=== PATIENT | female | born 1930 | race Caucasian/White ===

== ENCOUNTER 2018-03-22 11:00 | Day surgery (SDC) | payer MEDICARE ==
[~2018-03-22] VITALS: Ht 160 cm; Wt 65.8 kg
[~2018-03-22 11:00] MED LIST: COLACE100 MG PO; COZAAR25 MG PO; NORCO 5-325 TA1 EACH PO; RESTORIL7.5 MG PO; ZITHROMAX250 MG PO
--- NOTE | 2018-03-22 13:54 | NUR ---
03/22/18 1354 Lita Alonso 1331-PATIENT ARRIVED TO PACU ON 8L MASK NONAROUSABLE. ORAL AIRWAY AND NASAL AIRWAY IN PLACE. RR EVEN. SB HR 48-50'S. BP 190'S WALE FUNES AT BEDSIDE 1335-PATIENT NONAROUSABLE BP 203 SYSTOLIC WALE FUNES WROTE NEW ORDER FOR BP LABETOLOL IVP. 1340-PATIENT AROUSING SLIGHTLY OPENING EYES AND MOUTH ORAL AIRWAY REMOVED. 1343-NASAL AIRWAY REMOVED. 1344-CHANGED BP CUFF TO RIGHT ARM BP 177/75 1351-PATIENT DROWSY OPENING EYES REPORTING "NEEDS TO URINATE" PLACED ON BEDPAN PASSING FLATUS. WEANED TO RA 02 SAT 96%
--- NOTE | 2018-03-22 20:49 | OR ---
[facility] [address], [place] [address] Signed DATE OF OPERATION: 03/22/2018 SURGEON: Wale Etienne MD PREOPERATIVE DIAGNOSIS: Colon screening. POSTOPERATIVE DIAGNOSES: 1. Flat polyp of cecum. 2. Small non-flat polyp of cecum. 3. Pedunculated polyps x2 at 30 cm and 20 cm. 4. Extensive diverticulosis of colon. PROCEDURES PERFORMED: 1. Total colonoscopy to cecum with endomucosal resection of a flat cecal polyp (mucosal lift technique with spot tattoo dye with mucosal reapproximation with Endoclips and snare polypectomy), prolonged, complicated, difficult. 2. Snare polypectomy x2. 3. Cold morcellation polypectomy x1. ANESTHESIA: Intravenous sedation, propofol infusion, Wale Tinoco CRNA. INDICATIONS: This 88-year-old white woman is a patient of Samy Martinez PA-C, has never had colonoscopy in the past. She is referred for screening on that basis. She remains reasonably healthy overall. She has no symptoms of bleeding, diarrhea, or constipation. She has no personal or family history of colon cancer that she is aware of. She is admitted to undergo initial screening colonoscopy. Understands the risk of bleeding, infection, and perforation. FINDINGS: The prep was adequate with irrigation. There was no solid stool, but copious amounts of turbid fluid and particulate matter, which required a considerable amount of time in irrigation. It was ultimately cleared, however. There is a subtle, but real flat polyp on the cecum which was excised with endomucosal resection technique. Polyp was probably 2 cm in size in aggregate. There was another small polyp of the cecum. There was a pedunculated polyp at 30 cm and another at 20 cm, both excised with snare technique and extensive diverticular changes of sigmoid and left colon. Electronically Signed By: WALE ETIENNE MD 03/22/18 2049 PATIENT NAME: FITO LOYA OPERATIVE REPORT DATE OF : 34 REPORT #: [id number] PHYSICIAN: WALE ETIENNE MD PCP: SAMY MARTINEZ REPORT IS CONFIDENTIAL AND NOT TO BE RELEASED WITHOUT AUTHORIZATION [facility] [address], [place] [address] Signed DESCRIPTION OF PROCEDURE: The patient was brought to the endoscopy suite and placed in lateral decubitus position. Given intravenous sedation with propofol infusional technique by the brush machine setter. Full cardiopulmonary monitoring was maintained. Digital rectal examination was normal. The Olympus video colonoscope was passed into the rectum and manipulated into the sigmoid. There was copious amount of turbid fluid. There was no solid stool. There was a challenging sigmoid due to extensive diverticular changes. The considerable amount of time was required for irrigation and manipulation of the scope through and beyond the sigmoid making the procedure in aggregate prolonged, complicated, and difficult. Once past the sigmoid, the scope was reasonably readily passed to the more proximal colon, though copious amounts of prep fluid and material required brushings, irrigation in a fair amount of time for successful passage of the scope. Ultimately, the cecum was intubated, irrigation undertaken there. A subtle but real polypoid, flat-type sessile lesion of the cecum was noted. Excision was deemed most appropriate with an endomucosal resectional technique with mucosal lift. On that basis, a sclerotherapy needle was used to inject spot tattoo dye in the central portion of the polyp lifting it away from the underlying submucosa. Using a hot snare polypectomy technique, the bulk of the polyp was resected. Additional resection was undertaken with cold snare technique. The fragments of the polyp were gathered and passed for pathology. There was some oozing in the area as would be expected given her advanced age, thinness of the colon, and so forth. Additional cautery was deemed inadvisable and on that basis, Endoclips were used for hemostasis and ultimately also for mucosal reapproximation. There was another small polyp of the cecum, which was excised with cold morcellation technique. This was much smaller. The scope was carefully withdrawn and examination undertaken allowing for good visualization of mucosa throughout. Approximately at 30 cm from the anal verge was a pedunculated polyp about a centimeter in size. This was excised with hot snare polypectomy technique. Another similar such polyp was noted at 20 cm, similarly excised. This was a cold snare technique however. Multiple diverticula are noted in the sigmoid. The scope was further withdrawn and no other findings of concern. CONCLUDING DIAGNOSES: 1. Polyps x4. 2. Extensive diverticulosis. THE PROCEDURE WAS PROLONGED COMPLICATED AND DIFFICULT LASTING FOR 1 HOUR AND 17 MINUTES. PLAN: Recommend repeat colonoscopy in about three years depending on pathologic findings. If she has problems sooner, she will let us know. We will see her back in 4-6 weeks and assess her situation and review her pathology report. Electronically Signed By: WALE ETIENNE MD 03/22/18 7458 PATIENT NAME: FITO LOYA OPERATIVE REPORT DATE OF : 34 REPORT #: [id number] PHYSICIAN: WALE ETIENNE MD PCP: SAMY MARTINEZ REPORT IS CONFIDENTIAL AND NOT TO BE RELEASED WITHOUT AUTHORIZATION [place] [id number] Signed MD JAMES Mccartney/MODL /[id number] cc: CHAVA Albrecht Copies: SAMY MARTINEZ ~ Electronically Signed By: WALE ETIENNE MD 03/22/18 2049 PATIENT NAME: FITO LOYA OPERATIVE REPORT DATE OF : 34 REPORT #: [id number] PHYSICIAN: WALE ETIENNE MD PCP: SAMY MARTINEZ REPORT IS CONFIDENTIAL AND NOT TO BE RELEASED WITHOUT AUTHORIZATION
== END 2018-03-22 15:12 | disposition home or self-care (01) ==
LOC: OPS 11:00 → DS 11:00 → OPS 12:00
PROVIDERS: Surgery
PROC: 0DBE8ZZ Excision of Large Intestine, Via Natural or Artificial Opening Endoscopic (ICD-10-PCS; 2018-03-22)
PROC: 3E0H8GC Introduction of Other Therapeutic Substance into Lower GI, Via Natural or Artificial Opening Endoscopic (ICD-10-PCS; 2018-03-22)
PROC: 0DBH8ZZ Excision of Cecum, Via Natural or Artificial Opening Endoscopic (ICD-10-PCS; principal; 2018-03-22 12:00)
DX: Z12.11 Encounter for screening for malignant neoplasm of colon (principal); D12.0 Benign neoplasm of cecum; D12.6 Benign neoplasm of colon, unspecified; K57.30 Diverticulosis of large intestine without perforation or abscess without bleeding; K21.9 Gastro-esophageal reflux disease without esophagitis; I10 Essential (primary) hypertension; R32 Unspecified urinary incontinence; G25.81 Restless legs syndrome; Z87.19 Personal history of other diseases of the digestive system; Z79.899 Other long term (current) drug therapy
CPT/HCPCS: 88305; J2704; J7120

== ENCOUNTER 2020-11-04 16:09 | Emergency (ER) | payer MEDICARE ==
[~2020-11-04] VITALS: Ht 160 cm; Wt 65.8 kg
[2020-11-07] MEDS ORDERED: LEVOFLOXACIN500 MG PO (23:09)
== END 2020-11-04 19:53 | disposition home or self-care (01) ==
LOC: ED 16:09
DX: S01.01XA Laceration without foreign body of scalp, initial encounter (principal); W01.0XXA Fall on same level from slipping, tripping and stumbling without subsequent striking against object, initial encounter; I10 Essential (primary) hypertension; Z79.899 Other long term (current) drug therapy
CPT/HCPCS: 70450; 99283-25

== ENCOUNTER 2021-04-22 19:30 | Inpatient (IN) | payer MEDICARE ==
[~2021-04-22] VITALS: Ht 160 cm; Wt 60.0 kg
[~2021-04-22 19:30] MED LIST changes: +LEVOFLOXACIN500 MG PO
[2021-04-22] MEDS ORDERED: LOSARTAN POTASS50 MG PO (22:19)
--- NOTE | 2021-04-22 23:00 | NUR ---
AT APPROX THIS TIME, REPORT RECEIVED FROM ED RN, QUESTIONS ANSWERED. AWAITING pt's ARRIVAL TO FLOOR.
[2021-04-22] MEDS ORDERED: AZITHROMYCIN250 MG PO (23:37)
--- NOTE | 2021-04-22 23:40 | NUR ---
pt ARRIVED TO FLOOR FROM ED STRETCHER, SON ERICK ALSO IN ROOM. pt ORIENTED TO SLEF AND PLACE AT THIS TIME, pt UP 2PA STAND PIVOT TO BSC, ALSO INCONTINENT OF URINE. ANDRES CRE DONE AND FRESH ATTENDS IN PLACE. VSS, pt ON CPOX D.T COVID STATUS, ON RA. SPO2 WNL, RR EVEN AND UNLABORED. IV FLUIDS HUNG AND INFUSING DIRECTED, IV SITE WNL. BED ALARM ON FOR SAFETY. NO FURTHER NEEDS, pt ORIENTED TO ROOM. CALL LIGHT IN REACH.
--- NOTE | 2021-04-23 01:26 | NUR ---
pt RESTING IN BED WITH EYES CLOSED, RR EVEN AND UNLABORED. SPO2 94%, pt ON RA. CALL LIGHT IN REACH AND BED ALARM ON.
--- NOTE | 2021-04-23 02:48 | NUR ---
pt AWAKE AND RESTING IN BED, DENIES PAIN AND NAUSEA. ASKING FOR SOCKS TO BE PUT IN PLACE, SOCKS ALREADY IN PLACE. ROOM TEMP INCREASED AND THIS RN ASSISTED pt WITH BLANKETS. BED ALARM REMAINS ON. RR EVEN AND UNLABORED, SPO2 100% ON RA. CPOX IN PLACE. INTERMITTENT COUGH NOTED. NO FURTHER NEEDS, CALL LIGHT IN REACH AND pt IN SIGHT OF RN STATION.
--- NOTE | 2021-04-23 07:38 | NUR ---
MESSAGE SENT TO DR VILLEDA REGARDING pt's TRENDING BLOOD PRESSURES.
--- NOTE | 2021-04-23 07:42 | NUR ---
BEDSIDE REPORT, PT HAS BEEN PLEASANTLY CONFUSED, COOPERATIVE WITH CARE. NO NEW ISSUES, ON ROOM AIR. B/P HAVE BEEN ELEVATED SINCE ADMISSION.
--- NOTE | 2021-04-23 09:00 | NUR ---
PT SITTING UP IN BED EATING BREAKFAST TRAY, SET UP BY TOOL GRINDER. NO DISTRESS NOTED. PT CONFUSED.
--- NOTE | 2021-04-23 10:44 | NUR ---
PT VERBALIZED SHE NEEDED TO USE THE BATHROOM, PT ASSISTED TWO PERSON UP TO BEDSIDE COMMODE, SHE HAD INCONT OF URINE IN BRIEFS AND THEN DID HAVE SMALL AMOUNT OF CLEAR YELLOW URINE. SHE THEN TRANSFERED WITH TWO PERSON AND FWW TO RECLINER. PT TOLERATED ACTIVITY WELL WITH CONTINUED ENCOURAGEMENT AND PROMPTING.
[2021-04-23] MEDS ORDERED: MELATONIN3 MG PO (11:36)
--- NOTE | 2021-04-23 11:37 | NUR ---
MED REC COMPLETE
--- NOTE | 2021-04-23 12:11 | NUR ---
PT SITTING UP IN RECLINER. SHE IS DROWSY, SHE IS WAITING LUCH THEN WILL GO BACK TO BED TO REST
--- NOTE | 2021-04-23 13:48 | NUR ---
PT OFF THE UNIT FOR CT SCAN.
--- NOTE | 2021-04-23 14:10 | NUR ---
PT BACK TO HER ROOM AND SETTLED BACK TO BED AT THIS TIME.
--- NOTE | 2021-04-23 16:44 | NUR ---
PT RESTING IN BED, EYES CLOSED RR REGULAR 16 BPM. NO DISTRESS NOTED.
--- NOTE | 2021-04-23 17:45 | NUR ---
PT HAS BEEN UP TO COMMODE, MULTIPLE TIMES TODAY, SHE REMAINS A 2P WITH FWW. SHE HAS AMBULATED TO BATHROOM WITH PHYSICAL THERAPY AND OCCUPATIONAL THERAPY. SHE HAS NOT REPORTED ANY PAIN, NO NAUSEA. SHE IS CONSUMING 50% OF MEALS, VOIDING QUANTITY SUFFICIENT INCONT. WITH SMALL VOID WHEN UP TO COMMODE OR BATHROOM. SHE HAS CONTINUE TO BE CONFUSED ALTHOUGH PLEASANT AND COOPERATIVE WITH CARE. SHE HAS HAD FAMILY INTO REPORT HER BASELINE, AT HOME SHE AMBULATES INDEPENDENTLY, ALSO SHE DRIVES HER OWN CAR, AND FIXES LARGE FAMILY MEALS INDEPENDENTLY PER HER GRANDAUGHTER. CT SCANNED TODAY SHOWED NO ACUTE PATHOLOGIES
--- NOTE | 2021-04-23 17:54 | NUR ---
CALLED TO UPDATE ON PT V/S TEMP 100.2F AND B/P 184/79 WITH PULSE OF [address] SAID HE WOULD PLACE ORDER. GIVE TYLENOL FOR TEMP
--- NOTE | 2021-04-23 18:00 | NUR ---
KAVITHA RN IN PT ROOM TO ASSIST OCCUPATIONAL THERAPY, PT FELT NAUSEA WITH SPICY DINNER, CARL ADMNISTERED PRN IV, NAUSEA BETTER, PT PROVIDED AN ENSURE AND PUDDING AND APPLESAUCE. ASPIRATION RISK, PT NOTED TO REQUIRE ASSISTANCE WITH EATING.
--- NOTE | 2021-04-23 18:02 | NUR ---
In room with OT. Pt ambulates with FWW and 1-2PA to BR to void. Requires many verbal cues. Back to bed, I/Os charted, Vitals taken: oral temp 100.2, BP high at 187 systolic. Primary RN notified. Pt dinner in room, begins belching and reaching for tissues, emesis bag given. When asked if patient feels nauseated she responds yes. Current dinner of enchiladas removed, applesauce and ensure provided. PRN tylenol and zofran administered. Noted tremors in hands, requires assistance with feeding. This RN remains at bedside at this time
--- NOTE | 2021-04-23 18:10 | NUR ---
PT REPORTS SHE HAS NO CHEST PAIN. SHE IS ALERT AND VERBAL, SHE REMAINS CONFUSED.
--- NOTE | 2021-04-23 19:26 | EKG ---
[facility] [address] [place], [place] [address] Signed Normal sinus rhythm Left axis deviation Minimal voltage criteria for LVH, may be normal variant ( Lamar product ) Possible Anterolateral infarct , age undetermined Abnormal ECG No previous ECGs available Confirmed by JOHNNY VILLEDA DO ([id number]) on 04/23/2021 7:26:08 PM Electronically Signed By: JOHNNY VILLEDA DO 04/23/21 192 PATIENT NAME: FITO LOYA Electrocardiogram DATE OF : 34 PHYSICIAN: JOHNNY VILLEDA DO REPORT #: [id number] REPORT IS CONFIDENTIAL AND NOT TO BE RELEASED WITHOUT AUTHORIZATION
--- NOTE | 2021-04-23 19:29 | NUR ---
SHIFT REPORT RECEIVED FROM AMY MACEDO. PT SON IN ROOM. CPOX 95% ON RA. NO NEEDS AT THIS TIME. CALL LIGHT IN REACH.
--- NOTE | 2021-04-23 20:00 | NUR ---
pt called, states pulseoximiter on finger is bugger her, in to relocate sensor to pt's toe, pt is thankful, vs taken, pt is not incont at this time, nor needing to get up for a void, rn is aware, pt's son in , bed alarm and call light in place
--- NOTE | 2021-04-23 20:15 | NUR ---
ASSESSMENT, VS AND I&O COMPLETED. GCS 14 PT HAS SOME INAPPROPRIATE WORDS. LUNGS CLEAR IN UPPER LOBES AND DIM IN LOWER LOBES. SPO2 96% ON RA. HEART TONES REGULAR. ABD SOFT, NONTENDER, BOWEL TONES ACTIVE. CMS INTACT. IV WNL, IV FLUIDS INFUSING PER ORDER. NO OTHER NEEDS AT THIS TIME. SON IN ROOM. CALL LIGHT IN REACH.
--- NOTE | 2021-04-23 22:39 | NUR ---
IV PUMP ALARING, NEW BAG OF FLUIDS PROVIDED. BRIEFS CHANGED, PT DECLINES TO GET UP TO BSC. PT OFFERED WATER. NO OTHER NEEDS. CALL LIGHT IN REACH.
--- NOTE | 2021-04-23 23:49 | NUR ---
PT RESTING IN BED. CPOX 95% ON RA CURRENTLY.PT HAS EPISODES OF DESATURATION IN TO THE LOW 80s. PT NOTED TO HAVE EPISODES OF SNORING AND SHALLOW BREATHING. PT REPOSITIONED AND SPO2 WILL GO BACK TO HIGH 90s ON RA. NO OTHER NEEDS. CALL LIGHT IN REACH.
--- NOTE | 2021-04-24 02:13 | NUR ---
PT AWAKE IN ROOM. KEIRA RN IN ROOM WITH PT, UP TO BSC AND BACK TO BED, 1P FWW. ASSESSMENT COMPLETED. GCS 14 FOR INAPPROPRIATE WORDS AT TIMES. ORIENTED TO PERSON AND PLACE. SPO2 94% ON RA. LUNGS CLEAR IN UPPER LOBES, DIM IN LOWER LOBES. PT REPORTS CONGESTION AND RUNNY NOSE, OCCASSIONAL DRY COUGH. ABD SOFT, NONTENDER, BOWEL TONES ACTIVE. PT DENIES PAIN AT THIS TIME. IV WNL, CDI, IV FLUIDS INFUSING PER ORDER. WATER PROVIDED. I.S. EDUCATION PROVIDED. CALL LIGHT AND SAFETY EDUCATION PROVIDED. NO OTHER NEEDS. CALL LIGHT IN REACH.
--- NOTE | 2021-04-24 04:35 | NUR ---
BED ALARM SOUNDING, PT ASSISTED TO BSC. BRIEFS CHANGED. VS AND I&O COMPLETED. WATER PROVIDED. NO OTHER NEEDS AT THIS TIME. BED ALARM ON. CALL LIGHT IN REACH.
--- NOTE | 2021-04-24 06:20 | NUR ---
LAB IN ROOM. PT ASKS TO USE BSC. 1PA FWW TO BSC. BRIEFS CHANGED. PT ASSISTED BACK TO BED. NO OTHER NEEDS. BED ALARM ON. CALL LIGHT IN REACH.
--- NOTE | 2021-04-24 07:05 | NUR ---
this rn received report from kassie wooten. pt appears to be resting at this time with respirations noted and cpox in place
--- NOTE | 2021-04-24 08:55 | NUR ---
THIS RN IN PTS ROOM TO GIVE MORING MEDS. YAIR SHEIKH IN PTS ROOM GETTING PT UP TO BEDSIDE COMMODE. PT REQUESTING THE CHAIR ON THE OTHER SIDE OF ROOM. PT REQUIRED SOME STEADYING WHEN STANDING UP BUT IS STEADY ON FEET WHEN WALKING TO CHAIR. PT REPORTS PAIN IN SHOULDER THAT GOT WORSE WHEN DOING BP. PT STATES THAT THE MACHINE SQUEEZES TOO HARD. THIS RN PROVIDED PT WITH TYELENOL. THIS RN GAVE PT PRN HYDRALIZE DUE TO PTS BP >185.
--- NOTE | 2021-04-24 11:15 | NUR ---
this rn in pts room to give pt scheduled meds. md in room at this time as well. pt particular about where all belongings are. this rn reassured pt that belongings will all be within reach before this rn leaves room. pt back in bed with call light and everything else within reach. bed alram on.
--- NOTE | 2021-04-24 15:15 | NUR ---
THIS RN IN PTS ROOM TO CHECK ON PT. PT SITTING UP IN BED AND STATES THAT SHE IS DOING WELL. STATES THAT HER RIGHT ARM IS GETTING BETTER AND WOULD LIKE TO TAKE A BREAK FROM HAVE BP'S DONE ON THAT SIDE. PT STATES ALL SHE NEEDS HELP WITH IS FINDING THE CHANNEL WITH THE [employer]. THIS WAS ACCOMPLISHED. CALL LIGHT WITHIN REACH
--- NOTE | 2021-04-24 19:45 | NUR ---
PT BACK FROM THE TOILET, SHAREE FWW, SITTING AT THE EDGE OF THE CHATTING WITH SON IN ROOM
--- NOTE | 2021-04-24 20:05 | NUR ---
SHIFT REPORT RECEIVED FROM BERNICE MACEDO. PT RESTING IN BED. SON IN ROOM. CALL LIGHT IN REACH.
--- NOTE | 2021-04-24 20:30 | NUR ---
ASSESSMENT COMPLETED. SON IN ROOM. SCHEDULED MEDS PROVIDED. PT DENIES PAIN OR CONGESTION AT THIS TIME. GCS 15 BUT FORGETFUL. A&O TO PERSON AND PLACE. LUNGS CLEAR, HEART TONES REGULAR. ABD SOFT, NONTENDER, BOWEL TONES ACTIVE. CMS INTACT. IV WNL, CDI, FLUSHED WELL. NO OTHER NEEDS AT THIS TIME. CALL LIGHT IN REACH.
--- NOTE | 2021-04-24 22:45 | NUR ---
BED ALARM SET OFF, PT GETTING OOB, NEEDS TO USE THE BSC, ASSISTED OVER, NEW ATTENDS IN PLACE, PT BACK TO BED, PT IS CHATTY AND ASKS QUESTIONS ABT DISCHARGE TOMMOROW, NO FURTHER NEEDS AT THIS TIME
--- NOTE | 2021-04-25 | NUR ---
PT RESTING IN BED, EYES CLOSED. RR EVEN, UNLABORED. BED ALRM ON, CALL LIGHT IN REACH.
--- NOTE | 2021-04-25 02:00 | NUR ---
BED ALARM SOUNDING, PT ASSISTED TO BR. SBA FWW. BACK TO BED. NO OTHER NEEDS. CALL LIGHT IN REACH.
--- NOTE | 2021-04-25 04:00 | NUR ---
PT RESTING IN BED, EYES CLOSED. RR EVEN, UNLABORED. BED ALARM ON. CALL LIGHT IN REACH.
--- NOTE | 2021-04-25 06:00 | NUR ---
ASSESSMENT, VS ANS I&O COMPLETED. PT GCS 15, A&O TO PERSON,PLACE AND TIME. LUNGS CLEAR. HEART TONES REGULAR. ABD SOFT, NONTENDER, BOWEL TONES ACTIVE. IV WNL. NO OTHER NEEDS AT THIS TIME. CALL LIGHT IN REACH.
--- NOTE | 2021-04-25 07:10 | NUR ---
THIS RN RECEIVED REPORT FROM CHARLES MACEDO. PT APPEARS TO BE RESTING AT THIS TIME
--- NOTE | 2021-04-25 07:50 | NUR ---
THIS RN IN PTS ROOM TO ASSIST PT TO RESTROOM. PT BACK TO CHAIR AND IS READY FOR BREAKFAST
--- NOTE | 2021-04-25 08:45 | NUR ---
THIS RN IN PTS ROOM TO GIVE MORNING MEDS. PT STATES THAT HER SHOULDER IS STILL SORE FROM WHAT SHE THINKS IS THE BP CUFF
== END 2021-04-25 10:35 | disposition home or self-care (01) | DRG 177 ==
LOC: ED 19:30 → MS 19:32
PROVIDERS: ADMIT Student in an Organized Health Care Education/Training Program; ATTEND Student in an Organized Health Care Education/Training Program
PROC: XW033H6 Introduction of Other New Technology Monoclonal Antibody into Peripheral Vein, Percutaneous Approach, New Technology Group 6 (ICD-10-PCS; principal; 2021-04-22)
DX: U07.1 COVID-19 (principal); G93.41 Metabolic encephalopathy; E87.1 Hypo-osmolality and hyponatremia; Z23 Encounter for immunization; I10 Essential (primary) hypertension; E86.0 Dehydration; F41.9 Anxiety disorder, unspecified; Z79.899 Other long term (current) drug therapy
CPT/HCPCS: 36415; 51701; 70450; 71045; 80048; 80053; 81001; 85025; 93005; 93010; 94668; 94760; 94762; 97161; 97530; 97535; 99285-25; A9270; C9803; G0378; J1650; J2405; J7040; J7121; M0247; U0003

== ENCOUNTER 2021-08-02 19:51 | Emergency (ER) | payer MEDICARE ==
[~2021-08-02] VITALS: Ht 160 cm; Wt 59.9 kg
[~2021-08-02 19:51] MED LIST changes: +AZITHROMYCIN250 MG PO; +LOSARTAN POTASS50 MG PO; +MELATONIN3 MG PO
[2021-08-02] MEDS ORDERED: HYDROCODON-ACE1 EA10 PO (21:07)
== END 2021-08-02 21:36 | disposition home or self-care (01) ==
LOC: ED 19:51
DX: S61.307A Unspecified open wound of left little finger with damage to nail, initial encounter (principal); I10 Essential (primary) hypertension; Z79.899 Other long term (current) drug therapy; W23.0XXA Caught, crushed, jammed, or pinched between moving objects, initial encounter; Z23 Encounter for immunization
CPT/HCPCS: 64450; 73140; 90471; 90714; 99283-25

== ENCOUNTER 2021-11-29 15:06 | Emergency (ER) | payer MEDICARE ==
[~2021-11-29] VITALS: Ht 160 cm; Wt 59.9 kg
[~2021-11-29 15:06] MED LIST changes: +HYDROCODON-ACE1 EA10 PO
[2021-11-29] MEDS ORDERED: LOSARTAN POTAS100 MG PO (15:48)
[2021-11-29] MEDS ORDERED: PREDNISOLONE ACE5 ML OPTH (15:48)
[2021-11-29] MEDS ORDERED: OFLOXACIN5 M1 OP (15:48)
[2021-11-29] MEDS ORDERED: CEPHALEXIN500 M1 PO (18:49)
== END 2021-11-29 18:58 | disposition home or self-care (01) ==
LOC: ED 15:06
DX: U07.1 COVID-19 (principal); N39.0 Urinary tract infection, site not specified; I10 Essential (primary) hypertension; F03.90 Unspecified dementia, unspecified severity, without behavioral disturbance, psychotic disturbance, mood disturbance, and anxiety; Z79.899 Other long term (current) drug therapy; Z79.52 Long term (current) use of systemic steroids
CPT/HCPCS: 36415; 51701; 71045; 80053; 81001; 85025; 87502; 99285-25; A9270; J0696; U0003